=== PATIENT | male | born 1975 | race Caucasian/White ===

== ENCOUNTER → 2025-02-08 | Outpatient (CLI) | payer OTHER, SELFPAY ==
[2025-02-08 15:48] LABS: Calcium 9.7 mg/dL (7.6-11.0); T3 Total - Triiodothyronine 1.43 ng/mL (0.80-2.00); T4 Total, Thyroxin 10.1 ug/dL (4.5-12.1)
[2025-02-08 16:41] LABS: PTHIN 30 pg/mL (11-61)
[2025-02-10 04:07] LABS: Thyroid Peroxidase AB 18 IU/mL (0-34)
== END | disposition home or self-care (01) ==
LOC: MTLAB 13:09
PROVIDERS: PCP Nurse Practitioner Gerontology; Referring Provider Dermatology Pediatric Dermatology; Visit Provider Dermatology Pediatric Dermatology
DX: L29.89 Other pruritus (principal); L20.89 Other atopic dermatitis; Z79.899 Other long term (current) drug therapy
CPT/HCPCS: 36415; 82310; 83970; 84436; 84443; 84480; 86376

== ENCOUNTER → 2025-04-09 | Outpatient (CLI) | payer OTHER, SELFPAY ==
[2025-04-13 06:08] LABS: QNTFERON TB Mitogen Value > 10.00 IU/mL (.); QNTFERON TB Nil Value 0.04 IU/mL (.); QNTFERON TB1+ Ag Value 0.04 IU/mL (.); QNTFERON TB2+ Ag Value 0.04 IU/mL (.); QNTIFERON TB Positive Criteria Negative (Negative)
== END | disposition home or self-care (01) ==
LOC: MTLAB 14:12
PROVIDERS: PCP Nurse Practitioner Gerontology; Referring Provider Dermatology Pediatric Dermatology; Visit Provider Dermatology Pediatric Dermatology
DX: L20.89 Other atopic dermatitis (principal)
CPT/HCPCS: 36415; 86480